=== PATIENT | female | born 1995 | race Caucasian/White ===

== ENCOUNTER 2024-10-11 18:18 | Emergency (ER) | payer BC ==
--- NOTE | 2024-10-11 20:32 | RAD REPORT ---
EXAMINATION: CT HEAD WITHOUT CONTRAST CLINICAL INDICATION: Female, 29 years old.head injury TECHNIQUE: Axial CT images from the skull base to the vertex without intravenous contrast. Coronal an d sagittal reformatted images were created from the data set. One or more of the following dose reduction techniques were used: Automated exposure control, adjustment of the mA and/or kV according to patient size, and/or iterative reconstruction. Unless otherwise specified, incidental findings do not require dedicated imaging follow-up. [id number]. COMPARISON: No prior exam. FINDINGS: INTRACRANIAL: No acute intracranial hemorrhage. No hydrocephalus. No mass effect or midline shift. No significant white matter disease. VASCULATURE: No visualized abnormalities in the arteries or dural venous sinuses. SCALP/SKULL: No significant soft tissue or osseous abnormalities. SINUSES: The visualized paranasal sinuses and mastoid air cells are predominantly clear. IMPRESSION: No acute intracranial abnormality.
--- NOTE | 2024-10-11 20:56 | EDPHYS ---
Physician Documentation [facility] Name: Wellington Pompa Age: 29 yrs Sex: Female : 1995 Arrival Date: 10/11/2024 Time: 18:18 Bed DX1 Private MD: ED Physician Carlos Pritchett HPI: 10/11 19:40 This 29 yrs old Female presents to ER via Ambulatory with complaints of Head ec2 Injury Without LOC-Adult, Dizziness. 19:40 Patient arrives today for evaluation after head injury. Patient reports that she was ec2 seated and subsequently her large dog had run into the side of her head. No LOC, no blood thinners complaining of headache as well as dizziness and nausea that is persistent.. 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 - Infectious Disease History:: Denies. - Social history:: Smoking status: Patient denies any tobacco usage or history of. ROS: 19:40 Constitutional: as per hpi ec2 Exam: 19:40 Constitutional: GEN: NAD Head: atraumatic Eyes: EOMI Ears: External ears are ec2 normal. CV: regular rate LUNGS: no respiratory distress ABD: non-distended SKIN: no evidence of rashes MSK: no evidence of trauma. Neuro: Cranial nerves II through XII intact, strength intact all 4 extremities, no pronator drift, normal [id number]. Vital Signs: 19:34 BP 138 / 90; Pulse 88; Temp 98.1(O); Pulse Ox 100% on R/A; MAP 105 mmHg; tm6 19:39 Weight 102.06 kg; Height 5 ft. 6 in. ; tm6 19:39 Body Mass Index 36.32 (102.06 kg, 167.64 cm) tm6 MDM: 19:33 Medical Screening Exam initiated ec2 19:40 Data reviewed: vital signs, nurses notes. ED course: Patient arrives today for ec2 evaluation of a head injury. Examination revealing for intact neurologic examination. Will obtain CT scan of the head. Differential diagnoses considered include process such as intracranial brain bleed, intracranial mass, concussion.. 20:56 ED course: CT scan of the head shows no acute intracranial process. Suspect concussion. ec2 Will discharge home. Return precautions given.. 10/11 19:39 Order name: CT Head Brain wo Cont; Complete Time: 20:56 ec2 Administered Medications: No medications were administered Disposition Summary: 10/11/24 20:56 Discharge Ordered Notes: Location: Home ec2 Condition: Stable ec2 Diagnosis - Concussion without loss of consciousness ec2 Followup: ec2 - With: Private Physician - When: - Reason: Re-evaluation by your physician Discharge Instructions: - Discharge Summary Sheet ec2 - Concussion, Adult, [id number] ec2 Forms: - Medication Reconciliation Form ec2 - Antibiotic Education ec2 - Prescription Opioid Use ec2 - Patient Portal Instructions ec2 - Leadership Thank You Letter ec2 Prescriptions: - Compazine 10 mg Oral Tablet - take 1 tablet ORAL route every 8 hours As needed; 20 tablet; Refills: 0, ec2 Product Selection Permitted Signatures: Dispatcher [employer] EDUT Carlos Pritchett MD MD ec2 Marion Langley RN RN tm6 Corrections: (The following items were deleted from the chart) 19:35 19:35 PMHx: Diabetes mellitus; tm6 tm6
--- NOTE | 2024-10-11 20:56 | ER ---
Nurse's Notes [facility] Name: Wellington Pompa Age: 29 yrs Sex: Female : 1995 Arrival Date: 10/11/2024 Time: 18:18 Bed DX1 Private MD: Diagnosis: Concussion without loss of consciousness Presentation: 10/11 19:34 Chief complaint: Patient states: my dog was jumping from one end of the couch to the tm6 other and hit my head. He is 43lb. I went to urgent care, but they sent me here. No LOC. When I got up to walk I started to feel dizzy and nauseous. 19:34 Method Of Arrival: Ambulatory tm6 19:35 Coronavirus screen: Client denies travel out of the [place] in the last 14 days. Ebola tm6 Screen: Patient negative for fever greater than or equal to 101.5 degrees Fahrenheit, and additional compatible Ebola Virus Disease symptoms Patient denies exposure to infectious person. Patient denies travel to an Ebola-affected area in the 21 days before illness onset. No symptoms or risks identified at this time. Initial Sepsis Screen: Does the patient meet any 2 criteria? No. Patient's initial sepsis screen is negative. Does the patient have a suspected source of infection? No. Patient's initial sepsis screen is negative. Risk Assessment: Do you want to hurt yourself or someone else? Patient reports no desire to harm self or others. Onset of symptoms was October 11, 2024. 19:35 Acuity: DORON 4 tm6 Triage Assessment: 19:35 General: Appears in no apparent distress. Behavior is calm, cooperative. Pain: tm6 Complains of pain in head Pain currently is 4 out of 10 on a pain scale. EENT: No signs and/or symptoms were reported regarding the EENT system. Neuro: Level of Consciousness is awake, alert, obeys commands, Oriented to person, place, time, situation. Neuro: Reports dizziness. Cardiovascular: Patient's skin is warm and dry. Respiratory: Airway is patent Respiratory effort is even, unlabored, Respiratory pattern is regular, symmetrical. GI: Abdomen is round non-distended, Reports nausea. : No signs and/or symptoms were reported regarding the genitourinary system. Derm: No signs and/or symptoms reported regarding the dermatologic system. Musculoskeletal: No signs and/or symptoms reported regarding the musculoskeletal system. 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 - Infectious Disease History:: Denies. - Social history:: Smoking status: Patient denies any tobacco usage or history of. Screenin:56 [facility] ED Fall Risk Assessment (Adult) History of falling in the last 3 months, vc1 including since admission Yes- physiologic fall (2 pts) Confusion or Disorientation No (0 pts) Intoxicated or Sedated No (0 pts) Impaired Gait No (0 pts) Mobility Assist Device Used No (0 pt) Altered Elimination No (0 pt) Score/Fall Risk Level 0 - 2 = Low Risk Oriented to surroundings, Maintained a safe environment, Educated pt \T\ family on fall prevention, incl call for assistance when getting out of bed. Abuse screen: Denies threats or abuse. Nutritional screening: No deficits noted. Tuberculosis screening: No symptoms or risk factors identified. Vital Signs: 19:34 BP 138 / 90; Pulse 88; Temp 98.1(O); Pulse Ox 100% on R/A; MAP 105 mmHg; tm6 19:39 Weight 102.06 kg; Height 5 ft. 6 in. ; tm6 19:39 Body Mass Index 36.32 (102.06 kg, 167.64 cm) tm6 ED Course: 18:25 Patient arrived in ED. ra3 19:33 Carlos Pritchett MD is Attending Physician. ec2 19:35 Arm band placed on right wrist. tm6 19:36 Triage completed. tm6 20:23 CT Head Brain wo Cont In Process Unspecified. EDMS 21:57 No provider procedures requiring assistance completed. Patient did not have IV access vc1 during this emergency room visit. Administered Medications: No medications were administered Medication: 21:57 VIS not applicable for this client. vc1 Outcome: 20:56 Discharge ordered by . ec2 21:57 Discharged to home ambulatory, vc1 21:57 Condition: good 21:57 Discharge instructions given to patient, Instructed on discharge instructions, follow up and referral plans. medication usage, Demonstrated understanding of instructions, follow-up care, medications, Prescriptions given X 1, 21:57 Patient left the ED. vc1 Signatures: Dispatcher [employer] Helena Granda RN RN vc1 Carlos Pritchett MD MD ec2 Marion Langley RN RN tm6 Jessica Allen ra3 Corrections: (The following items were deleted from the chart) 19:35 19:34 Chief complaint: Patient states: my dog was jumping from one end of the couch to tm6 the other and hit my head. He is 43lb. I went to urgent care, but they sent me here. tm6 19:35 19:35 PMHx: Diabetes mellitus; tm6 tm6
[2024-10-12 03:11] VITALS: BP 138/90; TEMP 98.1; O2SAT 100
== END 2024-10-11 21:57 | disposition home or self-care (01) ==
LOC: ER 18:18
DX: S06.0X0A Concussion without loss of consciousness, initial encounter (principal)
CPT/HCPCS: 70450; 99283